=== PATIENT | female | born 1930 | race Caucasian/White ===

== ENCOUNTER 2018-01-20 06:52 | Emergency (ER) | payer OTHER ==
[~2018-01-20 06:52] MED LIST: ASPIR 8181 MG PO; CALCIUM500 MG PO; CELEBREX 200 M200 M1 PO; MULTIVITAMINS1 EAC7 PO; NORVASC10 MG PO; PRADAXA75 MG PO; PRAVACHOL20 MG PO; PREMARIN0.45 MG PO; TOPROL XL25 MG PO
== END 2018-01-20 10:45 ==
LOC: ER 06:52
DX: S01.01XA Laceration without foreign body of scalp, initial encounter (principal); S01.419A Laceration without foreign body of unspecified cheek and temporomandibular area, initial encounter; M32.9 Systemic lupus erythematosus, unspecified; Z90.49 Acquired absence of other specified parts of digestive tract; Z90.710 Acquired absence of both cervix and uterus; Z87.01 Personal history of pneumonia (recurrent); Z96.89 Presence of other specified functional implants; W19.XXXA Unspecified fall, initial encounter; Y93.89 Activity, other specified; Y92.89 Other specified places as the place of occurrence of the external cause; Y99.8 Other external cause status